=== PATIENT | male | born 1955 | race African-American/Black ===

== ENCOUNTER → 2017-10-27 | Outpatient (CLI) | payer OTHER ==
[2017-10-27] MEDS: ALBUTEROL SULFATE 2.5 MG/3 ML NEBU. NEB (10:29)
== END | disposition home or self-care (01) ==
LOC: PF 09:56
DX: M12.88 Other specific arthropathies, not elsewhere classified, other specified site (principal)
CPT/HCPCS: 71046; 72100; 94060; 94640; J7613